=== PATIENT | female | born 1995 | race Caucasian/White ===

== ENCOUNTER 2024-06-06 19:10 | Emergency (ER) | payer OTHER, SELFPAY ==
--- NOTE | ~2024-06-06 | CT_ITS ---
CLINICAL HISTORY: R flank pain CT abdomen and pelvis without contrast Comparison: None Findings: No consolidation or effusion. Gallbladder is contracted. No biliary ductal dilatation. Unenhanced liver, spleen and pancreas within normal limits. Adrenal glands within normal limits. There is a small irregularly shaped remnant of the right kidney with an 8 mm cyst in punctate calcifications. There is compensatory hypertrophy of the left kidney. No left renal stones or ureteral stones with no hydronephrosis hydroureter. No bowel obstruction, pneumoperitoneum, or pneumatosis. Pelvic contents unremarkable. Normal appendix. Abdominal aorta normal in size. The bones are intact. IMPRESSION: 1. No acute findings. 2. Small irregular remnant of atrophic right kidney with an 8 mm cyst and punctate calcifications with compensatory hypertrophy of the left kidney. 3. No hydronephrosis or hydroureter. This document has been electronically signed by: Rebecca Floyd MD on 06/06/2024 22:11:53
[2024-06-06 20:09] VITALS: BP 139/92; PULSE 75; RESP 18; TEMP 36.7; O2SAT 100; BMI 28.1
--- NOTE | 2024-06-06 20:09 | ED_ITS ---
HPI - Abdominal Pain General Chief Complaint: Abdominal Pain Stated Complaint: Lower L side abdominal pain Related Data Allergies Allergy/AdvReac Type Severity Reaction Status Date / Time No Known Allergies Allergy Verified 06/06/24 20:10 [facility] Social History Social History Advance Directives: No Advance Directives Information Provided: No Physical Exam ED Vital Signs: Vital Signs - 24 hr 06/06/24 20:09 Temperature 98.0 F Pulse Rate 75 Respiratory Rate 18 Blood Pressure 139/92 H Pulse Oximetry 100 Oxygen Delivery Method Room Air BMI result Body Mass Index 28.1 Course Course Course Narrative: This is an RME: Additional HPI, ROS, PE not included below will be deferred to primary provider. 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 Reports that she was seen at [facility] ER two days ago. Last menstrual period 2 weeks ago. While at [facility] she was tested for UTI, as well as BV, trich, yeast. Plan: Labs, UA, CT abd/pelvic Reevaluation(s) Reevaluation #1: Patient left without completing treatment. Medical Decision Making Lab Data 06/06/24 20:47 06/06/24 20:47 Labs: Lab Results 06/06/24 Range/Units 20:47 WBC 9.0 (4.8-10.8) X10*3/uL RBC 4.53 (4.20-5.50) X10*6/uL Hgb 13.2 (12.0-16.0) g/dl Hct 39.6 (37.0-47.0) % MCV 87.4 (80.0-98.0) fL MCH 29.1 (27.0-33.0) pg MCHC 33.3 (31.0-35.0) g/dl RDW 13.0 (11.0-16.0) % Plt Count 368 (160-400) X10*3/uL MPV 10.7 (9.4-12.3) fL Immature Gran % (Auto) 0.2 (0.0-0.4) % Neut % (Auto) 58.7 (45-73) % Lymph % (Auto) 28.8 (20-40) % [place] % (Auto) 6.6 (2-11) % Eos % (Auto) 5.1 H (0-4) % Baso % (Auto) 0.6 (0-2) % Lymph # (Auto) 2.6 (1.2-4.9) X10*3/uL [place] # (Auto) 0.6 (0.1-1.2) X10*3/uL Eos # (Auto) 0.5 H (0.0-0.4) X10*3/uL Baso # (Auto) 0.1 (0.0-0.2) X10*3/uL Abs Immat Gran (auto) 0.02 (0.00-0.03) X10*3/uL Absolute Neuts (auto) 5.3 (2.0-8.3) x10*3/uL Absolute Nucleated RBC 0.000 (0.0-0.012) X10*3/uL Nucleated RBC % (auto) 0.0 (0.0-0.2) /100WBC Sodium 140 (135-145) mmol/L Potassium 3.7 (3.3-5.1) mmol/L Chloride 106 (96-108) mmol/L Carbon Dioxide 24 (22-29) mmol/L Anion Gap 14 (12-20) BUN 12 (9-16) mg/dL Creatinine 0.69 (0.5-1.4) mg/dL Estim Creat Clear Calc 119.8 Estimated GFR > 60 Random Glucose 81 (60-115) mg/dL Calcium 9.2 (8.4-10.2) mg/dL Total Bilirubin 0.2 (0.0-1.0) mg/dL Direct Bilirubin < 0.2 (0.0-0.5) mg/dL AST 17 (5-31) U/L ALT 12 (0-31) U/L Alkaline Phosphatase 86 (39-117) U/L Total Protein 7.7 (6.5-8.0) g/dL Albumin 4.3 (3.5-5.0) g/dL Beta HCG, Quant < 2 mIU/mL Urine Color Yellow Urine Appearance Clear Urine pH 7.0 (5.0-9.0) Ur Specific Rough [place] Ready 1.020 (1.005-1.025) Urine Protein Negative (Neg-Trace) mg/dL Urine Glucose (UA) Negative (Negative) mg/dL Urine Ketones Negative (Negative) mg/dL Urine Blood Negative (Negative) Urine Nitrite Negative (Negative) Ur Leukocyte Esterase Negative (Negative) Chlam trachomat DNA PCR NOT DETECTED (Not Detect.) N.gonorrhoeae DNA (PCR) NOT DETECTED (Not Detect.) Discharge Plan Discharge Clinical Impression: Abdominal pain Patient Disposition: Left W/O Completing Treatment Discharge Date/Time: 06/07/24 04:22
[2024-06-06 20:53] LABS: MANUAL DIFF FLAG NO
[2024-06-06 21:00] LABS: Basophils Absolute Auto 0.1 X10*3/uL (0.0-0.2); Basophils Percent Auto 0.6 % (0-2); Eosinophils Absolute Auto 0.5 X10*3/uL (0.0-0.4); Eosinophils Percent Auto 5.1 % (0-4); Hematocrit 39.6 % (37.0-47.0); Hemoglobin 13.2 g/dl (12.0-16.0); Imm Gran Abs Auto 0.02 X10*3/uL (0.00-0.03); Imm Gran Pct Auto 0.2 % (0.0-0.4); Lymphocytes Absolute Auto 2.6 X10*3/uL (1.2-4.9); Lymphocytes Percent Auto 28.8 % (20-40); Mean Corpuscular HGB Conc 33.3 g/dl (31.0-35.0); Mean Corpuscular Hemoglobin 29.1 pg (27.0-33.0); Mean Corpuscular Volume 87.4 fL (80.0-98.0); Mean Platelet Volume 10.7 fL (9.4-12.3); Monocytes Absolute Auto 0.6 X10*3/uL (0.1-1.2); Monocytes Percent Auto 6.6 % (2-11); Neutrophils Absolute Auto 5.3 x10*3/uL (2.0-8.3); Neutrophils Percent Auto 58.7 % (45-73); Platelet Count 368 X10*3/uL (160-400); Red Blood Count 4.53 X10*6/uL (4.20-5.50)
[2024-06-06 21:01] LABS: Appearance Urine Clear; Color Urine Yellow; Glucose Urine UA Negative (Negative); Leukocyte Esterase Urine Negative (Negative); Nitrite Urine Negative (Negative); Urine Blood Negative (Negative); Urine Ketones Negative (Negative); Urine Protein Negative (Neg-Trace)
[2024-06-06 21:19] LABS: Alanine Aminotransferase 12 U/L (0-31); Albumin Level 4.3 g/dL (3.5-5.0); Alkaline Phosphatase 86 U/L (39-117); Anion Gap 14 (12-20); Aspartate Amino Transferase 17 U/L (5-31); Bilirubin Direct < 0.2 mg/dL (0.0-0.5); Bilirubin Total 0.2 mg/dL (0.0-1.0); Blood Urea Nitrogen 12 mg/dL (9-16); Calcium 9.2 mg/dL (8.4-10.2); Carbon Dioxide 24 mmol/L (22-29); Chloride 106 mmol/L (96-108); Creatinine Clr Calc Pharmacy 119.8; Estimated Glomerular Filt Rate > 60; Glucose Random 81 mg/dL (60-115); HCG Quantitative < 2 mIU/mL; Potassium 3.7 mmol/L (3.3-5.1); Sodium 140 mmol/L (135-145); Total Protein 7.7 g/dL (6.5-8.0)
[2024-06-07 02:31] LABS: CT PCR NOT DETECTED (Not Detect.); NG PCR NOT DETECTED (Not Detect.)
--- NOTE | 2024-06-07 04:13 | PC.NURSE ---
pt not in waiting room at this time no answer for reassessment.
--- NOTE | 2024-06-07 04:19 | PC.NURSE ---
no answer at 1732
--- OUTSIDE RECORDS SUMMARY | 2024-06-07 04:19 | XMS_ITS | Continuity of Care Document ---
Author Organization [facility] Address [address] [place] [id number] [facility] Name Relationship Address Phone FRANCO OWUSU mother Unknown Unavailable ELAINE, ALEXANER Personal Relationship Unknown Unavailable ELAINE, YAS Personal Relationship Unknown Unavailable ELAINE, YAS Personal Relationship Unknown Unavailable ELAINE, FRANCO Personal Relationship Unknown Unava ilable RIKASELLE, BERKLEY Other Unknown Unavailab le UMER, SHRUTHI step parent Unknown Unavailable MUHAMMAD, CHELLY sibling Unknown Unavailable ELAINE, FRANCO Personal Relationship Unknown Unava ilable ELAINE, FRANCO Personal Relationship Unknown Unava ilable UMER, SHRUTHI Personal Relationship Unknown Unav ailable ELAINE, YAS Personal Relationship Unknown Unavailable ELAINE, YAS Personal Relationship Unknown Unavailable ELAINE DRIVER, YAS Personal Relationship Unknown Unavailable ELAINE, FRANCO Personal Relationship Unknown Unava ilable SANTORO, SANTOS grandparent Unknown Unavailable ELAINE, YAS Personal Relationship Unknown Unavailable EMILY, BONNIE Other Unknown Unavailable ELAINE, YAS Personal Relationship Unknown Unavailable UMER, SHRUTHI Personal Relationship Unknown Unav ailable Care Team Providers Care Explosive Operator Fuse Name Role Phone Teetee Nuñez MD Primary Care Physician [phone] [id number] Date(s): 05/04/24 - 06/03/24 [facility]/[address] [address]- Encounter Type: Triage Allergies, Adverse Reactions, Alerts No Known Allergies Immunizations Given and Recorded Vaccine Date Status Refusal Reason tetanus/diphtheria/pertussis, acel(Tdap) 09/19/21 Given tetanus/diphtheria/pertussis, acel(Tdap) 1 10/10/10 Given SARS-CoV-2 mRNA ([id number]) vax 07/09/21 Given SARS-CoV-2 (COVID-19) mRNA BNT-162b2 vac 08/15/20 Given SARS-CoV-2 (COVID-19) mRNA BNT-162b2 vac 07/25/20 Given Influenza Virus Vaccine (oldterm) 02/17/20 Recorde d influenza virus vaccine, inactivated 04/07/19 Give n influenza virus vaccine, inactivated 04/05/18 Give n influenza virus vaccine, inactivated 05/26/16 Give n influenza virus vaccine, inactivated 02/18/15 Give n influenza virus vaccine, inactivated 04/10/14 Give n influenza virus vaccine, inactivated 04/10/14 Give n influenza virus vaccine, inactivated 2 01/20/13 Gi junior influenza virus vaccine, inactivated 3 02/04/10 Gi junior Measles/Mumps/Rubella Virus Vaccine 08/02/15 Given Measles/Mumps/Rubella Virus Vaccine 4 02/16/00 Giv en Measles/Mumps/Rubella Virus Vaccine 5 07/25/96 Giv en Hepatitis A Adult Vaccine 04/10/15 Given Hepatitis A Pediatric Vaccine 04/10/14 Given Meningococcal Conjugate Vaccine 6 09/29/13 Given Meningococcal Conjugate Vaccine 7 01/03/08 Given Human Papillomavirus Vaccine 8 10/10/10 Given Human Papillomavirus Vaccine 9 12/10/09 Given Human Papillomavirus Vaccine 10 10/01/09 Given influenza virus vaccine, live 11 03/29/09 Given influenza virus vaccine, live 12 01/08/09 Given influ virus vac, H1N1, inactive(oldterm) 03/29/09 Recorded Varicella Virus Vaccine 13 01/18/08 Given Varicella Virus Vaccine 14 10/18/96 Given tetanus-diphtheria toxoids (Td) 15 05/26/05 Given diphtheria/tetanus/pertussis, acel(DTaP) 16 02/16/00 Given diphtheria/tetanus/pertussis, acel(DTaP) 17 04/26/97 Given diphtheria/tetanus/pertussis, acel(DTaP) 18 06/22/96 Given diphtheria/tetanus/pertussis, acel(DTaP) 19 03/02/96 Given diphtheria/tetanus/pertussis, acel(DTaP) 20 95 Given Poliovirus Vaccine, Inactivated 21 02/16/00 Given Poliovirus Vaccine, Inactivated 22 06/22/96 Given Poliovirus Vaccine, Inactivated 23 03/02/96 Given Poliovirus Vaccine, Inactivated 24 95 Given Haemophilus B conjugate (HbOC) vaccine 25 01/24/97 Given Haemophilus B conjugate (HbOC) vaccine 26 11/22/96 Given Haemophilus B conjugate (HbOC) vaccine 27 02/21/96 Given Haemophilus B conjugate (HbOC) vaccine 28 95 Given hepatitis B pediatric vaccine 29 07/25/96 Given hepatitis B pediatric vaccine 30 95 Given hepatitis B pediatric vaccine 31 95 Given 1Admin Note: administered by rn. 2Result Comment: [01/20/2013] ORDERED BY JANIA FERRER MD 3Admin Note: -RN 4Admin Note: ADMINISTERED BY RN 5Admin Note: ADMINISTERED BY RN 6Result Comment: [09/29/2013] ORDERED BY TEETEE NUÑEZ MD 7Admin Note: IS 04/26 8Admin Note: given by rn 9Admin Note: VIS 05/21/06 GIVEN 10Admin Note: VIS 05/21/06 11Admin Note: --VIS 01/18/09 GIVEN 12Admin Note: VIS 11/27/2008 ADM by Deshawn Joyner RN 13Admin Note: ADM BY DONNIE PARKER RN VIS 06/30/2007 14Admin Note: ADMINISTERED BY RN 15Admin Note: ADMIN. BY RN 16Admin Note: ADMINISTERED BY RN 17Admin Note: ADMINISTERED BY RN 18Admin Note: ADMINISTERED BY RN 19Admin Note: ADMINISTERED BY RN 20Admin Note: ADMINISTERED BY RN 21Admin Note: ADMINISTERED BY RN 22Admin Note: ADMINISTERED BY RN 23Admin Note: ADMINISTERED BY RN 24Admin Note: ADMINISTERED BY RN 25Admin Note: ADMINISTERED BY RN 26Admin Note: ADMINISTERED BY RN 27Admin Note: ADMINISTERED BY RN 28Admin Note: ADMINISTERED BY RN 29Admin Note: ADMINISTERED BY RN 30Admin Note: ADMINISTERED BY RN 31Admin Note: ADMINISTERED BY RN Medications acetaminophen 500 mg oral tablet 2 tablet = 1,000 mg, By Mouth, 3 times a day, PRN for pain, # 100 tablet, 1 Refills, Maintenance, 10/29/21 2:35:00 PM EDT, Tablet, [facility], 164.5, cm, 09/19/21 8:08:00 EDT, Height Start Date: 10/29/21 Status: Ordered Quantity: 100.0 Unit: tablet Repeat number: 2 Aerochamber See Instructions, # 1 each, Refills 0, Tot. 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) Use As directed JT: 99, 06/15/22 2:16:00 PM EST, Compound, 164.5, cm, 06/15/22 13:57:00 EST, Height, 81.18, kg, 01/26/22 16:03:00 EDT, Dry Weight Start Date: 06/15/22 Status: Ordered Quantity: 1.0 Unit: each Repeat number: 1 citalopram 20 mg oral tablet 1 tablet = 20 mg, By Mouth, Daily, # 90 tablet, 1 Refills, Maintenance, 12/24/22 1:02:00 PM EDT, Tablet, [facility]/pharmacy #[id number], Please fill early due to damaged supply, 168, cm, 12/08/22 17:57:00 EDT, Height, 83.36, kg, 12/08/22 17:57:00 EDT, Dry Weight Start Date: 12/24/22 Stop Date: 06/22/23 Status: Ordered Quantity: 90.0 Unit: tablet Repeat number: 2 docusate sodium 100 mg oral capsule 1 capsule = 100 mg, By Mouth, 2 times a day, PRN as needed for constipation, # 20 capsule, 0 Refills, Maintenance, 06/22/23 3:06:00 PM EST, Capsule, [facility]/pharmacy #[id number], Partial fill upon patient request if the prescription is for a schedule II opioid drug., 168, cm, 06/22/23 14:47:00 EST, Height, 83,kg, 01/04/23 11:08:00 EDT, Dry Weight Start Date: 06/22/23 Status: Ordered Quantity: 20.0 Unit: capsule Repeat number: 1 Indication: Constipation, unspecified famotidine 20 mg oral tablet 1, tablet, By Mouth, 2 times a day, AVOID EATING AND. FOR 10 MINUTES AFTER EACH DOSE., # 60 tablet,Refills 1, Maintenance, 09/27/22 11:04:00 AM EDT, Route to Pharmacy Electronically, [facility] STORE [id number],168, cm, 09/23/22 20:03:00 EDT, Height, 80, kg, 09/23/22 20:03:00 EDT, Dry Weight Start Date: 09/27/22 Status: Ordered Quantity: 60.0 Unit: tablet Repeat number: 1 fluconazole 150 mg oral tablet 1 tablet = 150 mg, By Mouth, Once, epeat dose if still having symptoms in 72 hours, # 2 tablet, 0 Refills, Soft Stop, 06/11/23 11:55:00 AM EST, Tablet, [facility]/pharmacy #[id number], Partial fill upon patient request if the prescription is for a schedule II opioid drug., 168, cm, 03/03/23 17:55:00 EST, Height,83, kg, 01/04/23 11:08:00 EDT, Dry Weight Start Date: 06/11/23 Status: Ordered Quantity: 2.0 Unit: tablet Repeat number: 1 fluconazole 150 mg oral tablet 1 tablet = 150 mg, By Mouth, Every 7 days, # 4 tablet, 0 Refills, Soft Stop, 02/11/23 9:50:00 AM EDT, Tablet, [id number], resending original rx as pt. should not have this as refill request, 168, cm, 01/04/23 11:08:00 EDT, Height, 83, kg, 01/04/23 11:08:00 EDT, Dry Weight Start Date: 02/11/23 Stop Date: 03/11/23 Status: Ordered Quantity: 4.0 Unit: tablet Repeat number: 1 hydrOXYzine hydrochloride 25 mg oral tablet 1 tablet = 25 mg, By Mouth, Daily at bedtime, PRN for acute anxiety, for acute anxiety and for sleep. May alternate with melatonin for sleep, # 30 tablet, 2 Refills, Maintenance, 08/20/22 11:39:00 AM EDT, Tablet, [id number], Partial fill upon patient request if the prescription is for a schedule II opioid drug., 164.5, cm, 06/15/22 13:57:00 EST, Height, 81.18, kg, 01/26/22 16:03:00 EDT, DryWeight Start Date: 08/20/22 Stop Date: 11/18/22 Status: Ordered Quantity: 30.0 Unit: tablet Repeat number: 3 ibuprofen 800 mg oral tablet 1, tablet, By Mouth, Every 8 hours, PRN, # 30 tablet, Refills 2, Maintenance, NEEDED FOR PAIN, 07/01/22 10:36:00 AM EDT, Route to Pharmacy Electronically, [id number], 164.5, cm, 06/15/22 13:57:00 EST, Height, 81.18, kg, 01/26/22 16:03:00 EDT, Dry Weight Start Date: 07/01/22 Status: Ordered Quantity: 30.0 Unit: tablet Repeat number: 1 levothyroxine 0.1 mg oral tablet 1 tablet = 100 mcg, By Mouth, Daily, # 90 tablet, 1 Refills, Maintenance, 10/19/22 9:03:00 PM EDT, Tablet, [facility]/pharmacy #[id number], Duplicate Rx. Original sent 09/03/21. Sending remaining refills to pt requested pharmacy, 168, cm, 10/19/22 15:56:00 EDT, Height, 80, kg, 09/23/22 20:03:00 EDT, Dry Weight Start Date: 10/19/22 Status: Ordered Quantity: 90.0 Unit: tablet Repeat number: 2 Melatonin 5 mg oral tablet See Instructions, PRN for insomnia, 1 - 2 tablet By Mouth Daily at bedtime, # 60 tablet, 4 Refills,Maintenance, 02/27/22 2:24:00 PM EST, Tablet, [facility], Partial fill upon patient request if the prescription is for a schedule II opioid drug., 164.5, cm, 01/26/22 16:03:00 EDT, Height, 81.18, kg, 01/26/22 16:03:00 EDT, Dry Weight Start Date: 02/27/22 Status: Ordered Quantity: 60.0 Unit: tablet Repeat number: 5 mirtazapine 15 mg oral tablet 1 tablet = 15 mg, By Mouth, Daily at bedtime, # 90 tablet, 0 Refills, Maintenance, 12/08/22 6:27:00 PM EDT, Tablet, [facility]/pharmacy #[id number], Partial fill upon patient request if the prescription is for a schedule II opioid drug., 168, cm, 12/08/22 17:57:00 EDT, Height, 83.36, kg, 12/08/22 17:57:00 EDT, Dry Weight Start Date: 12/08/22 Status: Ordered Quantity: 90.0 Unit: tablet Repeat number: 1 naproxen 500 mg oral tablet 1 tablet, By Mouth, 2 times a day, # 60 tablet, 0 Refills, Maintenance, 11/01/23 11:18:00 AM EDT, [facility] [id number], 168, cm, 10/04/23 13:43:00 EDT, Height, 78.08, kg, 10/04/23 13:47:00 EDT, Dry Weight Start Date: 11/01/23 Status: Ordered Quantity: 60.0 Unit: tablet Repeat number: 1 ProAir HFA 90 mcg/inh inhalation aerosol with adapter 2, puffs, Inhalation, Every 4 hours, PRN, space inhalations one minute apart use with spacer chamber, # 1 each, Refills 2, Tot. Refills 2, Soft Stop, 02/11/22 10:32:00 AM EDT, Route to Pharmacy Electronically, [id number][id number] 164.5, cm, 01/26/22 16:03:00 EDT, Height, 81.18, kg, 01/26/22 16:03:00 EDT, Dry Weight Start Date: 02/11/22 Status: Ordered Quantity: 1.0 Unit: each Repeat number: 3 Symbicort 80mcg/4.5mcg Inhaler 2, puffs, Inhalation, 2 times a day, # 10.2 Gm, Refills 3, Tot. Refills 3, Maintenance, 06/15/22 2:16:00 PM EST, Aerosol, Route to Pharmacy Electronically, [id number], [facility]/pharmacy #[id number], 164.5, cm, 06/15/22 13:57:00 EST, Height, 81.18, kg, 01/26/22 16:03:00 EDT, Dry Weight Start Date: 06/15/22 Stop Date: 10/13/22 Status: Ordered Quantity: 10.2 Unit: g Repeat number: 4 triamcinolone 0.025% topical ointment 1 application, Topically, 2 times a day, For rash on arms Limit use to 14 days at a time, # 60 Gm, 0 Refills, Maintenance, 08/28/22 3:37:00 PM EDT, Ointment, [id number], Partial fill upon patient request if the prescription is for a schedule II opioid drug., 1 application Topically 2 times aday,x14 days,Instr:For rash on arms ; Limit use to 14 days at a time, 164.5, cm, 08/28/22 15:06:00 EDT, Height, 81.18, kg, 01/26/22 16:03:00 EDT, Dry Weight Start Date: 08/28/22 Stop Date: 09/11/22 Status: Ordered Quantity: 60.0 Unit: g Repeat number: 1 Indication: Rash and other nonspecific skin eruption Vitamin D3 2000 intl units oral capsule 1 capsule = 50 mcg, By Mouth, Daily, with food, # 90 capsule, 0 Refills, Maintenance, 10/06/23 1:43:00 PM EDT, Capsule, [id number], Partial fill upon patient request if the prescription is fora schedule II opioid drug., 168, cm, 10/04/23 13:43:00 EDT, Height, 78.08, kg, 10/04/23 13:47:00 EDT, Dry Weight Start Date: 10/06/23 Status: Ordered Quantity: 90.0 Unit: capsule Repeat number: 1 Problem List Condition Confirmation Course Effective Dates Status H ealth Status Informant Acne Confirmed 05/20/16 Active Asthma Confirmed Active 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 Confirmed 08/29/10 Active Encounter for screening for COVID-19 Confirmed Active 1right kidney 2High TPO antibodies Social History Social History Type Response Smoking Status Never (less than 100 in lifetime) entered on: 06/22/23 Sex Sex Representation Female (finding) Patient Care team information Care Team Personnel Name: Teetee Nuñez MD Position: [facility] Physician - Primary Care Member Role: PCP Address: [address] [place] [address] Telecom: Care Team Related Persons Name: SHRUTHI OWUSU Name: FRANCO OWUSU Name: BERKLEY HUYNH Name: CHELLY MUHAMMAD Name: SANTOS SANTORO Insurance Providers Guarantor name: [facility] Information #: 1 Payer: [facility] Member Number: NA Policy Number: NA Group Number: NA
--- OUTSIDE RECORDS SUMMARY | 2024-06-07 04:19 | XMS_ITS | Continuity of Care Document ---
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 Role Phone Teetee Nuñez MD [id number] - 06/03/[address] [address]- Encounter Diagnosis Dysuria(Final) - 06/03/24 Symptoms of upper respiratory infection (URI)(Final) - 06/03/24 Discharge Disposition: A-D/C Home Attending Physician: Zahraa Jackson MD Admitting Physician: Zahraa Jackson MD Referring Physician: Not on Staff, Referring MD Encounter Type: Disch ES Allergies, Adverse Reactions, Alerts No Known Allergies Immunizations Given and Recorded Vaccine Date Status Refusal Reason tetanus/diphtheria/pertussis, acel(Tdap) 09/19/21 Given tetanus/diphtheria/pertussis, acel(Tdap) 1 10/10/10 Given SARS-CoV-2 mRNA ([id number]) vax 07/09/21 Given SARS-CoV-2 (COVID-19) mRNA BNT-162b2 [...] ORDERED BY JANIA FERRER MD 3Admin Note: MF-RN 4Admin Note: ADMINISTERED BY RN 5Admin Note: ADMINISTERED BY RN 6Result Comment: [09/29/2013] ORDERED BY TEETEE NUÑEZ MD 7Admin Note: IS 04/26 8Admin Note: given by rn 9Admin Note: VIS 05/21/06 GIVEN 10Admin Note: VIS 05/21/06 11Admin Note: --VIS 01/18/09 GIVEN 12Admin Note: VIS 11/27/2008 ADM by Deshanw Joyner RN 13Admin Note: ADM BY DONNIE [...] Refills, Maintenance, 10/29/21 2:35:00 PM EDT, Tablet, [facility], 164.5, cm, 09/19/21 8:08:00 EDT, Height [...] Refills, Maintenance, 12/24/22 1:02:00 PM EDT, Tablet, [facility]/pharmacy #[id number], Please fill early due to [...] Refills, Maintenance, 06/22/23 3:06:00 PM EST, Capsule, [facility]/pharmacy #[id number], Partial fill upon patient request [...] 11:04:00 AM EDT, Route to Pharmacy Electronically, [facility] STORE 58662,168, cm, 09/23/22 20:03:00 EDT, Height, 80, kg, 09/23/22 20:03:00 EDT, Dry Weight Start Date: 09/27/22 Status: Ordered Quantity: 60.0 Unit: tablet Repeat number: 1 fluconazole 150 mg oral tablet 1 tablet = 150 mg, By Mouth, Once, epeat dose if still having symptoms in 72 hours, # 2 tablet, 0 Refills, Soft Stop, 06/11/23 11:55:00 AM EST, Tablet, [facility]/pharmacy #[id number], Partial fill upon patient request [...] Soft Stop, 02/11/23 9:50:00 AM EDT, Tablet, [facility]/pharmacy #[id number], resending original rx as pt. should [...] Refills, Maintenance, 08/20/22 11:39:00 AM EDT, Tablet, [facility]/pharmacy #[id number], Partial fill upon patient request [...] 10:36:00 AM EDT, Route to Pharmacy Electronically, [facility] STORE [id number], 164.5, cm, 06/15/22 13:57:00 EST, Height, 81.18, kg, 01/26/22 16:03:00 EDT, Dry Weight Start Date: 07/01/22 Status: Ordered Quantity: 30.0 Unit: tablet Repeat number: 1 levothyroxine 0.1 mg oral tablet 1 tablet = 100 mcg, By Mouth, Daily, # 90 tablet, 1 Refills, Maintenance, 10/19/22 9:03:00 PM EDT, Tablet, [facility]/pharmacy #[id number], Duplicate Rx. Original sent 09/03/21. [...] 4 Refills,Maintenance, 02/27/22 2:24:00 PM EST, Tablet, [facility], Partial fill upon patient request if [...] Refills, Maintenance, 12/08/22 6:27:00 PM EDT, Tablet, [facility]/pharmacy #[id number], Partial fill upon patient request [...] 0 Refills, Maintenance, 11/01/23 11:18:00 AM EDT, [facility] STORE 63039, 168, cm, 10/04/23 13:43:00 EDT, Height, 78.08, [...] 10:32:00 AM EDT, Route to Pharmacy Electronically, [id number], [facility]/pharmacy #[id number], 164.5, cm, 01/26/22 16:03:00 EDT, Height, 81.18, kg, 01/26/22 16:03:00 EDT, Dry Weight Start Date: 02/11/22 Status: Ordered Quantity: 1.0 Unit: each Repeat number: 3 Symbicort 80mcg/4.5mcg Inhaler 2, puffs, Inhalation, 2 times a day, # 10.2 Gm, Refills 3, Tot. Refills 3, Maintenance, 06/15/22 2:16:00 PM EST, Aerosol, Route to Pharmacy Electronically, [id number], [facility]/pharmacy #[id number], 164.5, cm, 06/15/22 13:57:00 EST, Height, 81.18, kg, 01/26/22 16:03:00 EDT, Dry Weight Start Date: 06/15/22 Stop Date: 6/27/23 Status: Ordered Quantity: 10.2 Unit: g Repeat [...] Confirmed Active 1right kidney 2High TPO antibodies Results Orders for Microbiology Reports Name Date Wet Prep 06/03/24 Group A Strep Screen and Culture 06/03/24 Microbiology Reports TEST:Wet Prep STATUS:Auth (Verified) BODY SITE: SOURCE:VAGINA COLLECTED DATE/TIME:06/03/24 10:23 PM Wet Prep SPECIMEN DESCRIPTION : VAGINAL SPECIMEN SPECIAL REQUESTS : NONE DIRECT EXAM : 1+ WHITE BLOOD CELLS NO CLUE CELLS OBSERVED NO YEAST OBSERVED NO TRICHOMONAS OBSERVED REPORT STATUS : FINAL 06/03/2024 TEST:Group A Strep Screen and Culture STATUS:Auth (Verified) BODY SITE: SOURCE:THROAT COLLECTED DATE/TIME:06/03/24 5:58 PM Group A Strep Screen and Culture SPECIMEN DESCRIPTION : THROAT SWAB SPECIAL REQUESTS : NONE DIRECT EXAM : RAPID GROUP A ANTIGEN RESULT IS NEGATIVE, CULTURE SENT TO REFERENCE LAB CULTURE : RAPID GROUP A ANTIGEN RESULT IS NEGATIVE, CULTURE SENT TO REFERENCE LAB REPORT STATUS : FINAL 06/03/2024 Vital Signs Most recent to oldest [Reference Range]: 1 2 3 Height 165 cm (06/03/24 11:05 PM) 165 cm (06/03/24 5:56 PM) 165 cm (06/03/24 4:55 PM) Weight 77.5 kg (06/03/24 11:05 PM) 77.5 kg (06/03/24 5:56 PM) 77.5 kg (06/03/24 4:55 PM) Oxygen Saturation [94-100 %] 96 % (06/03/24 4:55 PM) Pulse Rate [55-90 bpm] 64 bpm (06/03/24 4:55 PM) Body Mass Index [18.5-24.99 kg/m2] 28.47 kg/m2 *H* (06/03/24 4:55 PM) Blood Pressure [90-138/55-84 mm Hg] 121/65mm Hg (06/03/24 4:55 PM) Respiratory Rate [16-30 br/min] 18 br/min (06/03/24 4:55 PM) Temperature [96.8-100.4 DegF] 97.9 DegF (06/03/24 4:55 PM) Mode of Delivery (Oxygen) Room air (06/03/24 4:55 PM) Blood pressure sites Arm, left (06/03/24 4:55 PM) Temperature Route Oral (06/03/24 4:55 PM) Dry Weight 77.5 kg (06/03/24 11:05 PM) 77.5 kg (06/03/24 5:56 PM) 77.5 kg (06/03/24 4:55 PM) Weight Obtained Via Patient/family state d (06/03/24 4:55 PM) Dry Weight Obtained Via Patient/family s tated (06/03/24 4:55 PM) Social History Social History Type Response Smoking Status Never (less than 100 in lifetime) entered on: 06/22/23 Sex Sex Representation Female (finding) Note * Zahraa Jackson MD: PERFORM Event Display: Patient Education Leaflets Authored Date: [id number] Viral Upper Respiratory Illness (Adult) ?? [id number] Viral Upper Respiratory Illness (Adult) You have a viral upper respiratory illness (URI), which is another term for the common cold. This viral illness is contagious during the first few days. It spreads through the air by the sick person coughing and sneezing. It may also spread by direct contact (touching the sick person and then touching your own eyes, nose, or mouth). Frequent handwashing will lower the risk of spread. Most viral illnesses end within 7 to 10 days with rest and simple home remedies. Sometimes, the illness may lastfor several weeks. Antibiotics will not kill a virus, and they are generally not prescribed for this condition. Home care ??? If symptoms are severe, rest at home for the first 2 to 3 days or as advised. When you resume activity, don't let yourself get too tired. ??? Don't smoke. If you do smoke and need help quitting, talk with your health care provider. ??? Avoid secondhand smoke. ??? You may use acetaminophen or ibuprofen to control pain and fever unless another medicine was prescribed.??If you have chronic liver or kidney disease, talk with your provider before taking these medicines. Also, talk withyour provider if you've had a stomach ulcer or digestive bleeding, or if you take blood-thinning medicines. Never give aspirin to anyone under 18 years of age who is ill with a viral infection or fever. It may cause severe liver or brain damage, or even . ??? Your appetite may be poor, so a light diet is okay. Stay well hydrated by drinking 6 to 8 glasses of fluids per day (water, soft drinks, juices, tea, or soup). Extra fluids will help loosen secretions in the nose and lungs. ??? Vsml-vhp-xqdrljd cold medicines will not help you to recover quickly. But they may be helpful for cough, sore throat, and nasal and sinus congestion. If you take prescription medicines, ask your provider orpharmacist which xjxu-zgk-znhrqmf medicines are safe to use. If you have high blood pressure, don'tuse decongestants without first talking with your provider. ?? Follow-up care Follow up with your health care provider, or as advised. ?? When to seek medical advice Contact your health care provider right away if any of these occur: ??? Cough with lots of colored sputum (mucus) ??? Severe headache; face, neck, or ear pain ??? Difficulty??swallowing??due to throat pain ??? Fever of 100.4??F (38??C) or higher , or as directed by your provider ?? Call 911 Call 911 if any of these occur: ??? Chest pain, shortness of breath, wheezing, or difficulty breathing ??? Coughing up blood ??? Very severe pain with swallowing, especially if it goes along with a muffled voice ??? Feeling of doom ??? Feeling dizzy, faint, or confused ??? Lips or skin is blue, purple, or jones in color ??? Prolonged fever of 102??F (38.8??C) or higher ??? Symptoms that get worse or last longer than 10 days ?? Last Reviewed Date: 2024 ?? [id number] The [employer]. All rights reserved. This information is not intended as a substitute for professional medical care. Always follow your healthcare professional's instructions. ?? Patient Care team information Care Team Personnel Name: Teetee Nuñez MD Position: [facility] Physician - Primary Care Member Role: PCP Address: [address] [place] [address] Telecom: Care Team Related Persons Name: SHRUTHI OWUSU Name: FRANCO OWUSU Name: BERKLEY HUYNH Name: CHELLY MUHAMMAD Name: SANTOS SANTORO Insurance Providers Guarantor name: [facility] Health Plan Information #: 1 Payer: [facility] Member Number: [id number] Policy Number: NA Group Number: [id number] Health Plan Information #: 2 Payer: [facility] Member Number: [id number] Policy Number: NA Group Number: NA
--- OUTSIDE RECORDS SUMMARY | 2024-06-07 04:19 | XMS_ITS | Clinical Summary ---
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; COMMENT: on replacement - doesn't take faithfully Asthma DX:Asthma; COMME NT: mild intermittent Obesity DX:Obesity Dysplastic kidney right DX:Dysplastic kidney Acanthosis nigricans DX:Acanthos is nigricans Historical Medical DX 02/2007 DX:MENARCH E INCEPTION OF Chronic otitis media DX:Chronic otitis media; COMMENT: seen by ENT Kyphosis DX:Kyphosis Tear, knee, lateral meniscus MRI done 09/27 DX: Tear, knee, lateral meniscus; COMMENT: done [place] [facility] [place] Family History Medical History Relation Name Comments Diabetes Maternal Grandmother Hyperlipidemia Maternal Grandmother Hypertension Maternal Grandmother Thyroid disease Maternal Grandmother Relation Name Status Comments Maternal Grandmother Social History Tobacco Use Types Packs/Day Years Used Date Smoking Tobacco: Never Smokeless Tobacco: Never Alcohol Use Standard Drinks/Week Comments Not Asked 0 (1 standard drink = 0.6 oz pur e alcohol) Comments Unknown Sex and Gender Information Value Date Recorded Sex Assigned at Not on file Legal Sex Female 5:42 AM EST Gender Identity Not on file Sexual Orientation Not on file Obstetrics History Plan of Treatment Health Maintenance Due Date Last Done Comments Cervical Cancer Screening: Pap Smear 10/16/2016 DTaP,Tdap,and Td Vaccines (7 - Td or Tdap) 10/10/2020 10/10/2010, 05/26/2005, 02/16/2000, Additional history exists Cholesterol Screening (Lipid Panel) 12/13/2023 Depression Screening 12/13/2023 HIV Screening 12/13/2023 Hepatitis C Screening 12/13/2023 Social Influencers of Health Screening 12/13/2023 COVID-19 Vaccine ( season) 2023 Influenza Vaccine (#1) 2023 0, 03/29/2009, 01/08/2009 Hepatitis B Vaccines Completed 07/25/1996, 1995, 1995 HIB Vaccines Completed 01/24/1997, 09/1996, 02/21/1996, Additional history exists IPV Vaccines Completed 02/16/2000, 11/1996, 11/22/1996, Additional history exists MMR Vaccines Completed 02/16/2000, 07/25/1996 Meningococcal ACWY Vaccine Aged Out 01/03/2008 N o longer eligible based on patient's age to complete this topic Varicella Vaccines Completed 01/18/2008, 10/18/1996 HPV Vaccines Completed 10/10/2010, 11/18, 10/01/2009 Hepatitis A Vaccines Aged Out No long er eligible based on patient's age to complete this topic Meningococcal B Vacine Aged Out No lo nger eligible based on patient's age to complete this topic Pneumococcal Vaccine: Pediatrics (0 to 5 Years) and At-Risk Patients (6 to 64 Years) Aged Out No longer eligible based on patient's age to complete this topic RSV Immunization Patients Under 20 months Aged Out No longer eligible based on patient's age to complete this topic
--- OUTSIDE RECORDS SUMMARY | 2024-06-07 04:19 | XMS_ITS | Continuity of Care Document ---
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 Role Phone Teetee Nuñez MD Primary Care Physician [phone] [id number]): [facility] - [facility]04[facility]/[address] [address]- Attending Physician: Mimi Perry MD Admitting Physician: Mimi Perry MD Encounter Type: Pre-OutPatient One Time Allergies, Adverse Reactions, Alerts No Known Allergies Immunizations Given and Recorded Vaccine Date Status Refusal Reason tetanus/diphtheria/pertussis, acel(Tdap) 09/19/21 Given tetanus/diphtheria/pertussis, acel(Tdap) 1 10/10/10 Given SARS-CoV-2 mRNA (cfpnxph-jbtk-vfstt) vax 07/09/21 Given SARS-CoV-2 (COVID-19) mRNA BNT-162b2 [...] Refills, Maintenance, 10/29/21 2:35:00 PM EDT, Tablet, [facility], 164.5, cm, 09/19/21 8:08:00 EDT, Height [...] Refills, Maintenance, 12/24/22 1:02:00 PM EDT, Tablet, [facility]/pharmacy #[id number], Please fill early due to damaged [...] Refills, Maintenance, 06/22/23 3:06:00 PM EST, Capsule, [facility]/pharmacy #[id number], Partial fill upon patient request if [...] 11:04:00 AM EDT, Route to Pharmacy Electronically, [facility] STORE 61789,168, cm, 09/23/22 20:03:00 EDT, Height, 80, kg, 09/23/22 20:03:00 EDT, Dry Weight Start Date: 09/27/22 Status: Ordered Quantity: 60.0 Unit: tablet Repeat number: 1 fluconazole 150 mg oral tablet 1 tablet = 150 mg, By Mouth, Once, epeat dose if still having symptoms in 72 hours, # 2 tablet, 0 Refills, Soft Stop, 06/11/23 11:55:00 AM EST, Tablet, [facility]/pharmacy #[id number], Partial fill upon patient request if [...] Soft Stop, 02/11/23 9:50:00 AM EDT, Tablet, [facility]/pharmacy #[id number], resending original rx as pt. should [...] Refills, Maintenance, 08/20/22 11:39:00 AM EDT, Tablet, [facility]/pharmacy #[id number], Partial fill upon patient request if [...] 10:36:00 AM EDT, Route to Pharmacy Electronically, [facility] STORE 37888, 164.5, cm, 06/15/22 13:57:00 EST, Height, 81.18, kg, 01/26/22 16:03:00 EDT, Dry Weight Start Date: 07/01/22 Status: Ordered Quantity: 30.0 Unit: tablet Repeat number: 1 levothyroxine 0.1 mg oral tablet 1 tablet = 100 mcg, By Mouth, Daily, # 90 tablet, 1 Refills, Maintenance, 10/19/22 9:03:00 PM EDT, Tablet, [facility]/pharmacy #[id number], Duplicate Rx. Original sent 09/03/21. Sending [...] 4 Refills,Maintenance, 02/27/22 2:24:00 PM EST, Tablet, [facility], Partial fill upon patient request if [...] Refills, Maintenance, 12/08/22 6:27:00 PM EDT, Tablet, [facility]/pharmacy #[id number], Partial fill upon patient request if [...] 0 Refills, Maintenance, 11/01/23 11:18:00 AM EDT, [facility], 168, cm, 10/04/23 13:43:00 EDT, Height, 78.08, [...] 10:32:00 AM EDT, Route to Pharmacy Electronically, [id number], [facility]/pharmacy #[id number], 164.5, cm, 01/26/22 16:03:00 EDT, Height, 81.18, kg, 01/26/22 16:03:00 EDT, Dry Weight Start Date: 02/11/22 Status: Ordered Quantity: 1.0 Unit: each Repeat number: 3 Symbicort 80mcg/4.5mcg Inhaler 2, puffs, Inhalation, 2 times a day, # 10.2 Gm, Refills 3, Tot. Refills 3, Maintenance, 06/15/22 2:16:00 PM EST, Aerosol, Route to Pharmacy Electronically, [id number], [facility]/pharmacy #[id number], 164.5, cm, 06/15/22 13:57:00 EST, Height, [...] Team Personnel Name: Teetee Nuñez MD Position: S Physician - Primary Care Member Role: PCP Address: [address] [place] [address] Telecom: Care Team Related Persons Name: SHRUTHI OWUSU Name: FRANCO OWUSU Name: BERKLEY HUYNH Name: CHELLY MUHAMMAD Name: SANTOS SANTORO Insurance Providers Guarantor name: [facility] Information #: 1 Payer: [facility] Member Number: [id number] Policy Number: NA Group Number: NA Health Plan Information #: 2 Payer: [facility] Member Number: NA Policy Number: NA Group Number: NA
== END 2024-06-07 04:22 | disposition left against medical advice (07) ==
PROVIDERS: Physician Assistant Medical; Emergency Provider Emergency Medicine; PCP Internal Medicine
DX: R10.32 Left lower quadrant pain (principal)
CPT/HCPCS: 36415; 74176; 80048; 80076; 81003; 84702; 85025; 87491; 87591; 99282; 99284

== ENCOUNTER → 2024-06-06 20:11 | Outpatient (BNV) | payer MEDICAID, SELFPAY | PROVIDERS: PCP Internal Medicine; Visit Provider Specialist | DX: N28.1 Cyst of kidney, acquired (principal); N26.1 Atrophy of kidney (terminal) | CPT/HCPCS: 74176 ==